=== PATIENT | female | born 1945 | race Caucasian/White ===

== ENCOUNTER 2018-08-29 09:30 | Day surgery (SDC) | payer MEDICARE, OTHER ==
[~2018-08-29 09:30] MED LIST: BUPIVACAINE HCL 0.75% INJ/PF (7.5 MG/1 ML) 10 ML SDV OD PRN; CHONDR SU A NA/HYALUR INTRAOC KIT (SURGICARE) ONE; EPINEPHRINE INJ/PF 1 MG/1 ML AMPULE ONE; LIDOCAINE 4% INJ/PF (40 MG/ML) 5 ML AMPUL OD PRN; PHENYLEPHRINE/KETOROLAC 1%-0.3% 4 ML VIAL ONE
[2018-08-29] MEDS ORDERED: FENTANYL CITRATE INJ/PF 100 MCG/2 ML AMPUL ONE (10:08)
[2018-08-29] MEDS ORDERED: MIDAZOLAM 2 MG/2 ML INJ ONE (10:08)
[2018-08-29] MEDS: TETRACAINE HCL 0.5% OPH SOLN 0.6 ML DROPERETTE OD PRN ×3 (10:08→11:27)
[2018-08-29] MEDS ORDERED: ONDANSETRON HCL INJ/PF 4 MG/2 ML SDV ONE (10:08)
[2018-08-29] MEDS: CYCLOPENTOLATE 0.2%/PHENYLEPHRINE 1% OPH SOLN 2 ML OD PRN ×3 (10:40→11:00)
[2018-08-29] MEDS: BESIFLOXACIN HCL 0.6% OPH SUSP 5 ML BOTTLE OD PRN ×4 (10:40→12:00)
[2018-08-29] MEDS: TROPICAMIDE 1% OPH SOLN 3 ML OD PRN ×3 (10:40→11:00)
[2018-08-29] MEDS: KETOROLAC TROMETHAMINE 0.45% 4 DROP/0.4 ML DROPERETTE OD PRN ×2 (10:40→12:28)
[2018-08-29] MEDS ORDERED: LIDOCAINE 1% INJ-PF (10 MG/ML) 30 ML SDV ONE (11:49)
[2018-08-29] MEDS: DORZOLAMIDE HCL 2%/TIMOLOL MALEAT 0.5% OPH SOLN 10 ML OD PRN ×2 (12:00)
[2018-08-29] MEDS ORDERED: LIDOCAINE 2% INJ-PF (20 MG/ML) 10 ML AMPUL ONE (12:07)
[2018-08-29] MEDS ORDERED: ALBUTEROL SULFATE HFA (90 MCG/PUFF) 200 PUFF/8.5 GM MDI IH ONE (12:08)
--- NOTE | 2018-08-29 12:20 | [facility] OPERATIVE REPORT E ---
[facility] Operative Report NAME: JULIAN PARSONS AGE: 73Y DATE OF SURGERY: 08/29/2018 ROOM: PREOPERATIVE DIAGNOSIS: Cataract, right eye. POSTOPERATIVE DIAGNOSIS: Cataract, right eye. PROCEDURE PERFORMED: Phacoemulsification with toric intraocular lens implant, right eye. SURGEON: SOLO MORALES M.D. ANESTHESIA: Topical with MAC. INDICATIONS FOR SURGERY: Difficulty driving at night. PROCEDURE: The patient was brought to the operating room and placed on the operative table. Following tetracaine drops, topical anesthesia was administered. This consisted of instrument wipe pledgets soaked in a solution of 4% Xylocaine mixed with 0.75% Marcaine in a 1:2 ratio. A 2 x 1 cm pledget was placed in the superior fornix. A 1 x 1 cm pledget was placed in the inferior fornix. The eye was patched shut for 5 minutes. The patch was removed. The eye was sterilely prepped and draped in the usual manner. Lid speculum was placed in the eye. The pledgets were removed and 4-0 black silk sutures were placed around the superior and the inferior rectus muscles to be used as traction. A conjunctival peritomy was made at the 10 o'clock position. Hemostasis was obtained with bipolar cautery. A posterior limbal groove was created using a crescent knife and dissected anteriorly towards the cornea. A sharp point blade was used to create a paracentesis site at the 2 o'clock position. A 2.4 mm keratome was used to enter the anterior chamber through the groove. Viscoelastic was injected into the anterior chamber. An anterior capsulotomy was performed using Utrata forceps in a capsulorrhexis fashion. Hydrodissection and hydrodelineation were performed. Phacoemulsification was performed in [id number] technique. Total phaco time was 3.85 CDE. Following this, the I/A unit was used to remove residual cortex. Viscoelastic was injected into the capsular bag. Intraocular lens model [id number], 19.0 diopters, serial number [id number], was placed in the capsular bag. The I/A unit was used to remove residual viscoelastic. The wound was seen to be watertight under high and low pressure, and no sutures were placed. The intraocular lens was well centered. The pressure was adjusted in the eye to normal pressure. The 4-0 black silk sutures and lid speculum were removed. The eye was shielded after Besivance drops were placed. The patient tolerated the procedure well and was sent to the recovery room in good condition. Prior to the surgery, the patient was placed in a seated position and the 0, 270, and 180-degree axis of the eye was marked using a marking level. Prior to placing the lens implant the 112-degree axis of the eye was marked and the lens was centered at this axis. DICTATING PHYSICIAN: SOLO MORALES M.D. [id number] PHY#: [id number] ID: [id number] JOB#: [id number] ACCT: [id number] cc:SOLO MORALES M.D. >
--- NOTE | 2018-08-29 12:20 | [facility] DISCHARGE SUMMARY E ---
[facility] Discharge Summary NAME: JULIAN PARSONS AGE: 73Y ADMITTED: 08/29/2018 DISCHARGED: 08/29/2018 FINAL DIAGNOSIS: Cataract, right eye. HOSPITAL COURSE: The patient is a 73-year-old lady who underwent uneventful cataract extraction with toric intraocular lens implant, right eye, on 08/29/2018. She will be discharged to home. She was instructed to resume preoperative medications; to take Tylenol as needed for discomfort; to keep her eye shielded; to use Durezol, Prolensa, and Besivance at 3 p.m. and 8 p.m.; and to follow up in my office in 1 day. DICTATING PHYSICIAN: SOLO MORALES M.D. [id number] PHY#: [id number] ID: [id number] JOB#: [id number] ACCT: [id number] cc:SOLO MORALES M.D. >
[2018-08-30] MEDS ORDERED: BUPIVACAINE HCL 0.75% INJ/PF (7.5 MG/1 ML) 10 ML SDV OD PRN (05:00)
[2018-08-30] MEDS ORDERED: LIDOCAINE 4% INJ/PF (40 MG/ML) 5 ML AMPUL OD PRN (05:00)
[2018-08-30] MEDS ORDERED: CYCLOPENTOLATE 0.2%/PHENYLEPHRINE 1% OPH SOLN 2 ML OD PRN (05:00)
[2018-08-30] MEDS ORDERED: TROPICAMIDE 1% OPH SOLN 3 ML OD PRN (05:00)
[2018-08-30] MEDS ORDERED: KETOROLAC TROMETHAMINE 0.45% 4 DROP/0.4 ML DROPERETTE OD PRN (05:00)
[2018-08-30] MEDS ORDERED: DORZOLAMIDE HCL 2%/TIMOLOL MALEAT 0.5% OPH SOLN 10 ML OD PRN (05:00)
[2018-08-30] MEDS ORDERED: BESIFLOXACIN HCL 0.6% OPH SUSP 5 ML BOTTLE OD PRN (05:00)
== END 2018-08-29 12:36 | disposition home or self-care (01) ==
LOC: SC 09:30
PROVIDERS: ATTEND Ophthalmology
DX: H25.11 Age-related nuclear cataract, right eye (principal); Z96.1 Presence of intraocular lens; I10 Essential (primary) hypertension; K21.9 Gastro-esophageal reflux disease without esophagitis; R01.1 Cardiac murmur, unspecified; Z79.899 Other long term (current) drug therapy
CPT/HCPCS: 66984; V2787; J2250; J3490 ×6; A9270; J0171; J3010; J2405; C9447

== ENCOUNTER → 2018-09-06 | Outpatient (CLI) | payer MEDICARE, OTHER ==
--- NOTE | 2018-09-06 16:02 | RADIOLOGY REPORT (SQ) ---
EXAM DESCRIPTION: MRI RT UPPER JOINT WITHOUT COMPLETED DATE/TIME: 09/06/2018 3:45 pm REASON FOR STUDY: M25.511 PAIN IN RIGHT SHOULDER M25.511 PAIN IN RIGHT SHOULDER COMPARISON: None. TECHNIQUE: Right shoulder images acquired and stored on PACS. Multiplanar imaging to include fat sen sitive sequences such as T1, water sensitive sequences such as FST2/STIR, cartilage sensitive sequenc es such as FSPD/gradient-echo sequences. LIMITATIONS: Motion. Body habitus. FINDINGS: BONE MARROW AND CORTEX: No worrisome bone lesions or marrow replacement. No occult fractur es. JOINT OR BURSAL EFFUSION: Minimal fluid in the subacromial bursa. GLENO-HUMERAL ARTICULATION: Subchondral cyst formation in the glenoid. Small osteophytes. Superior migration of the humeral head. ACROMION AND AC JOINT: Type 1 acromion. Moderate AC joint arthropathy. ROTATOR CUFF AND INTERVAL: Mild fatty infiltration of the supraspinatus and infraspinatus. Full-thic kness tear of the supraspinatus. Partial width full-thickness tear of the infraspinatus. At least p artial thickness tear of the subscapularis. No rotator interval tear. No rotator interval thickening to suggest adhesive capsulitis. LABRUM AND BICEPS LABRAL COMPLEX: Limited due to motion artifact. Medial subluxation of the distal biceps. REMAINDER OF LABRUM AND IGHL : Grossly intact. PERIARTICULAR AND ADJACENT SOFT TISSUES: No masses or abnormal nodes. OTHER: No other significant finding. IMPRESSION: 1. Limitations due to motion and body habitus. 2. Full-thickness tear supraspinatus with retraction. Partial width tears of the infraspinatus and s ubscapularis. 3. Medial dislocation of the distal biceps. 4. AC and glenohumeral joint arthropathy. TECHNICAL DOCUMENTATION: JOB ID: [id number] [employer]- All Rights Reserved Reading location - IP/workstation name: [email or web address]
== END ==
LOC: RAD 14:42
PROVIDERS: ATTEND Orthopaedic Surgery
DX: M75.121 Complete rotator cuff tear or rupture of right shoulder, not specified as traumatic (principal); M25.511 Pain in right shoulder